=== PATIENT | female | born 1960 | race Caucasian/White ===

== ENCOUNTER 2017-09-17 09:09 | Emergency (ER) | payer SELFPAY ==
[2017-09-17] MEDS ORDERED: Lidocaine 1% PF 5 ML VIAL ONE ×2 (09:33→10:46)
[2017-09-17] MEDS ORDERED: cefTRIAXone\\ROCEPHIN 500 MG VIAL ONE (10:46)
== END 2017-09-17 11:40 | disposition home or self-care (01) ==
LOC: ERS 09:09
DX: S61.451A Open bite of right hand, initial encounter (principal); I10 Essential (primary) hypertension; Z79.899 Other long term (current) drug therapy; W55.01XA Bitten by cat, initial encounter
CPT/HCPCS: 10060; 87070; 87077; 87186; 87205; 96372; J0696; J2001

== ENCOUNTER 2017-09-18 09:20 | Emergency (ER) | payer SELFPAY | END 2017-09-18 11:54 | disposition home or self-care (01) | LOC: ERS 09:20 | DX: S61.431A Puncture wound without foreign body of right hand, initial encounter (principal); I10 Essential (primary) hypertension; E06.3 Autoimmune thyroiditis; W55.01XA Bitten by cat, initial encounter; Z79.899 Other long term (current) drug therapy | CPT/HCPCS: 99283 ==